=== PATIENT | female | born 1955 | race Caucasian/White ===

== ENCOUNTER → 2021-12-12 10:03 | Outpatient (BNVA) | payer MEDICARE, SELFPAY | PROVIDERS: Visit Provider Nurse Practitioner Family | DX: M85.651 Other cyst of bone, right thigh (principal); M16.11 Unilateral primary osteoarthritis, right hip | CPT/HCPCS: 73502; 99204 ==

== ENCOUNTER 2022-01-10 16:11 | Outpatient (CLI) | payer MEDICARE, SELFPAY ==
--- NOTE | 2022-01-10 16:30 | CTR_ITS ---
PROCEDURE INFORMATION: Exam: CT Right Lower Extremity Without Contrast, Hip Exam date and time: 01/10/2022 4:18 PM Age: 66 years old Clinical indication: Right hip pain. Subchondral cyst. TECHNIQUE: Imaging protocol: CT of the Right lower extremity without contrast was performed. Exam focused on the hip. Radiation optimization: All CT scans at this facility use at least one of these dose optimization techniques: automated exposure control; mA and/or kV adjustment per patient size (includes targeted exams where dose is matched to clinical indication); or iterative reconstruction. COMPARISON: CR XR hip RT 2-3V wo/w pel* [id number] 12/12/2021 10:05 AM RADIATION DOSE METRICS: Total DLP (mGy-cm): 798.42 FINDINGS: Bones/joints: There is end-stage osteoarthritis involving the right hip with subchondral cysts and [id number] joint space narrowing. There are large peripheral spurs. Small hip joint effusion. No acute fracture, dislocation or subluxation is identified. Soft tissues: No significant subcutaneous soft tissue swelling. Small lipoma in the right gluteus minimus muscle. Lymph nodes: No significant lymphadenopathy. Urinary bladder: The bladder wall is thickened. Correlate with urinalysis. Reproductive: The uterus and adnexa are not well assessed. CT/CT hip RT wo con* [id number] IMPRESSION: 1. End-stage osteoarthritis involving the right hip with small hip joint effusion. 2. The bladder wall is thickened. Correlate with urinalysis. 3. No acute fracture is identified.
== END 2022-01-10 16:12 | disposition home or self-care (01) ==
LOC: RAD 16:12
PROVIDERS: Visit Provider Nurse Practitioner Family
DX: M85.60 Other cyst of bone, unspecified site (principal); M16.11 Unilateral primary osteoarthritis, right hip; M25.451 Effusion, right hip
CPT/HCPCS: 73700

== ENCOUNTER → 2022-02-03 16:36 | Outpatient (BNVA) | payer MEDICARE, SELFPAY | PROVIDERS: Visit Provider Specialist | DX: M16.11 Unilateral primary osteoarthritis, right hip (principal); N32.89 Other specified disorders of bladder; M85.60 Other cyst of bone, unspecified site | CPT/HCPCS: 81003; 99214 ==

== ENCOUNTER 2022-02-10 13:07 | Outpatient (CLI) | payer MEDICARE, SELFPAY ==
--- NOTE | 2022-02-10 13:00 | MR_ITS ---
WS: [id number] MRI RIGHT HIP NONCONTRAST TECHNIQUE: axial T2 fat sat, coronal T1, coronal STIR, sagittal T2 fat sat, sagittal T1 hips. Patient could not complete the entire examination due to pain. CLINICAL INFORMATION: right hip pain/osteoarthritis of right hip COMPARISON: CT hip January 10, 2022 FINDINGS: Advanced degenerative arthritis RIGHT hip with subchondral cystic change involving the femoral head a nd adjacent acetabulum. Hypertrophic changes along the femoral head. Complete loss of joint space. La rge slightly expansile lytic lesion in the RIGHT ilium also seen on the recent CT measuring 3.7 x 2.2 cm. This lesion has a scalloped appearance with increased soft tissue. Suspected pathologic fracture on the prior CT. Associated susceptibility artifact compatible with hemosiderin suspicious for PVNS. Well marginated subchondral cystic change involving the femoral head and acetabulum can also be seen with PVNS. Associated diffuse synovial thickening involving the RIGHT hip. No drainable joint effusion. Addition al considerations Multiple myeloma or metastatic disease less likely. Hypertrophic changes along the femoral neck. Normal bone marrow signal in the lower lumbar spine and bony pelvis and sacrum. Moderate degenerative narrowing LEFT hip. No edema in the LEFT hip. MR/MR hip RT wo con* [id number] IMPRESSION: 1. Advanced arthritis RIGHT hip with complete loss of the joint space and adva nced subchondral cystic changes. 2. Lobulated lesion in the ilium measuring 3.7 x 2.2 cm with suspected patholo gic fracture better seen on the recent CT. 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 Additional areas of synovial thickening a nd susceptibility artifact also suspicious for PVNS. 3. No edema in the LEFT femoral head or neck. Moderate degenerative narrowing LEFT hip. 4. Normal bone marrow signal in the lumbar spine and sacrum. 5. Normal visualized pubic rami. Notified Sirena Sanchez MD at 02/10/2022 3:03 PM.
== END 2022-02-10 13:08 | disposition home or self-care (01) ==
LOC: RAD 13:08
PROVIDERS: Visit Provider Specialist
DX: M16.11 Unilateral primary osteoarthritis, right hip (principal); M85.60 Other cyst of bone, unspecified site
CPT/HCPCS: 73721

== ENCOUNTER 2023-03-17 19:28 | Emergency (ER) | payer MEDICARE, SELFPAY ==
[2023-03-17 19:30] VITALS: BP 153/94; PULSE 80; RESP 18; TEMP 36.7; O2SAT 98; BMI 22.7
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
[2023-03-17 20:50] LABS: Basophils # 0.1 10^3/uL (0.0-0.1); Basophils % 0.5 %; Eosinophils # 0.1 10^3/uL (0.0-0.8); Eosinophils % 0.4 %; Hematocrit 41.9 % (36-47); Lymphocytes # 1.2 10^3/uL (0.8-4.8); Lymphocytes % 9.9 %; Mean Corpuscular HGB Conc 33.2 g/dL (30-55); Mean Corpuscular Hemoglobin 30.1 pg (27-33); Mean Corpuscular Volume 90.7 fl (85-98); Mean Platelet Volume 9.4 fL (7.4-10.4); Monocytes # 0.8 10^3/uL (0.2-0.9); Monocytes % 6.9 %; Neutrophils # 9.73 10^3/uL (1.8-7.7); Neutrophils % 81.9 %; Nucleated Red Blood Cells % 0 %; Platelet Count 254 10^3/cmm (157-399); Red Blood Count 4.62 10^6/uL (3.85-5.65); Red Cell Distribution Width 12.7 % (12.1-15.1); White Blood Count 11.89 10^3/uL (3.29-11.43)
[2023-03-17 20:52] VITALS: BP 128/93; PULSE 77; RESP 16; O2SAT 100
[2023-03-17 21:14] LABS: Alanine Aminotransferase 14 U/L (0-33); Albumin Level 4.1 g/dL (3.5-5.2); Alkaline Phosphatase 104 U/L (35-105); Anion Gap 14.1 (5-19); Aspartate Amino Transferase 23 U/L (0-32); Blood Urea Nitrogen 15 mg/dL (8-23); Calcium 9.8 mg/dL (8.5-10.5); Carbon Dioxide 27 mmol/L (22-29); Chloride 102 mmol/L (98-107); Glomerular Filtration Rate 71.3 mL/min (90-130); Glucose 108 mg/dL (65-115); Osmolality Calculated 289 mOsm/kg (285-295); Potassium 4.1 mmol/L (3.5-5.1); Sodium 139 mmol/L (136-145); Total Bilirubin 0.2 mg/dL (0.15-1.2); Total Protein 7.1 g/dL (6.6-8.7)
[2023-03-17 21:28] VITALS: BP 120/82; PULSE 82; RESP 14; O2SAT 99
== END 2023-03-17 21:30 | disposition home or self-care (01) ==
PROVIDERS: Emergency Provider Emergency Medicine
DX: S00.83XA Contusion of other part of head, initial encounter (principal); V89.2XXA Person injured in unspecified motor-vehicle accident, traffic, initial encounter
CPT/HCPCS: 36415; 70450; 80053; 85025; 99284